=== PATIENT | male | born 1940 | race Caucasian/White ===

== ENCOUNTER 2017-08-16 21:19 | Emergency (ER) | payer OTHER ==
[2017-08-16] MEDS ORDERED: LOSARTAN POTAS100 M1 PO (22:03)
[2017-08-16] MEDS ORDERED: AMBIEN10 MG PO (22:04)
[2017-08-16] MEDS ORDERED: ATIVAN1 MG PO (22:04)
[2017-08-16] MEDS ORDERED: TYLENOL WITH CO1 TA2 PO (22:05)
[2017-08-16] MEDS ORDERED: TEMAZEPAM30 MG PO (22:05)
[2017-08-16] MEDS ORDERED: COREG12.5 MG PO (22:06)
[2017-08-16 23:15] VITALS: BP 123/77
== END 2017-08-16 23:15 | disposition home or self-care (01) ==
LOC: ED 21:19
DX: R55 Syncope and collapse (principal); I10 Essential (primary) hypertension; Z95.1 Presence of aortocoronary bypass graft; Z79.899 Other long term (current) drug therapy

== ENCOUNTER 2018-04-02 12:54 | Emergency (ER) | payer OTHER ==
[~2018-04-02] VITALS: Ht 170.2 cm; Wt 61.3 kg
[~2018-04-02 12:54] MED LIST: AMBIEN10 MG PO; ATIVAN1 MG PO; COREG12.5 MG PO; LOSARTAN POTAS100 M1 PO; TEMAZEPAM30 MG PO; TYLENOL WITH CO1 TA2 PO
[2018-04-02 12:56] VITALS: BP 179/101; Ht 170.2 cm; Wt 61.3 kg
== END 2018-04-02 14:17 | disposition home or self-care (01) ==
LOC: ED 12:54
DX: J44.1 Chronic obstructive pulmonary disease with (acute) exacerbation (principal); I10 Essential (primary) hypertension
CPT/HCPCS: 99406; J7613; J7644; Q0092